=== PATIENT | male | born 1985 | race Caucasian/White ===

== ENCOUNTER 2017-10-08 15:51 | Emergency (ER) | payer BC ==
[2017-10-08 16:07] VITALS: BP 135/82
--- NOTE | 2017-10-08 16:55 | UC ---
Back Pain HPI - HPI Summary HPI Summary: 32 y/o male presents to the urgent care c/o lower back pain that radiates to left hip for the past 4 weeks. 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 He then developed pain on and off which is sometimes relief by Ibuprofen or Tylenol PO. However for the past week , he feels pain has worsen. Pain now is 4/10, spasmodic radiating to left hip or groin. Pt denies urinary symptoms, Hx of kidney stones, saddle anesthesia, urinary or fecal incontinence, numbness or tingling over the lower legs, SOB, chest pain, abdominal pain, hernias, N/V/D or Hx of STD. Pt also states he had Hx of prostatitis about 7 years ago which resolved w/ Tx. L - History of Current Complaint Chief Complaint: UCGI Stated Complaint: BACK, ABDOMINAL, AND GROIN PAIN Time Seen by Provider: 10/08/17 16:32 Hx Obtained From: Patient Onset/Duration: Sudden Onset, Lasting Weeks - 4 weeks, Still Present, Worse Since - 1 week Timing: Intermittent Severity Initially: Moderate Severity Currently: Mild Pain Intensity: 4 - w/ movement Pain Scale Used: 0-10 Numeric Back Pain: Is Discrete @ - lower back, Radiates To - left hip and left leg and sometimes to the lower abdomen Character: Sharp, Spasmodic Aggravating Factor(s): Movement, Lifting, Bending Alleviating Factor(s): Rest, OTC Meds Associated Signs And Symptoms: Negative: Fever, Weakness, Flank Pain, Bladder Incontinence - Risk Factors AAA Risk Factors: Negative TAD Risk Factors: Negative Cauda Equina Risk Factors: Negative Epidural Abscess Risk Factors: Negative - Allergies/Home Medications Allergies/Adverse Reactions: Allergies Allergy/AdvReac Type Severity Reaction Status Date / Time No Known Allergies Allergy Verified 10/08/17 16:07 PMH/Surg Hx/FS Hx/Imm Hx Previously Healthy: Yes Other Cardiovascular History: Heart murmur Other GI/ History: Prostatitis - Surgical History Surgical History: Yes Surgery Procedure, Year, and Place: LT KNEE ARTHROSCOPY - Family History Known Family History: Positive: Cardiac Disease, Hypertension - Social History Occupation: Employed Full-time Lives: With Family Alcohol Use: None Substance Use Type: None Smoking Status (MU): Never Smoked Tobacco Review of Systems Constitutional: Negative Skin: Negative Eyes: Negative ENT: Negative Respiratory: Negative Cardiovascular: Negative Gastrointestinal: Negative Genitourinary: Negative Motor: Negative Neurovascular: Negative Musculoskeletal: Decreased ROM - lower back, Other: - lower back pain rapdiating to left hip and lower abdomen Neurological: Negative Psychological: Negative Is Patient Immunocompromised?: No All Other Systems Reviewed And Are Negative: Yes Physical Exam Triage Information Reviewed: Yes Vital Signs: Initial Vital Signs Temp 99.5 F 10/08/17 16:02 Pulse 77 10/08/17 16:02 Resp 17 10/08/17 16:02 BP 135/82 10/08/17 16:02 Pulse Ox 100 10/08/17 16:02 - Additional Comments Vital Signs Reviewed: Yes Appearance: Well-Appearing, Well-Nourished, male sitting in the examining table w/o any apparent distress. Eyes: Positive: Conjunctiva Clear - PERRLA, EOMI. ENT: Positive: Normal ENT inspection, Hearing grossly normal, Pharynx normal, TMs normal, Uvula midline Neck: Positive: Supple, Nontender, No Lymphadenopathy Respiratory: Positive: Chest non-tender, Lungs clear, Normal breath sounds, No respiratory distress Cardiovascular: Positive: RRR, No Murmur, Pulses Normal, Brisk Capillary Refill Abdomen . Abd: Flat with no distention. No surface trauma, scars, incisions. hyperactive bowel sounds present in all four quadrants. No tenderness, guarding , rigidity to palpation. No masses palpated, no pulsation in epigastric area. No organomegaly. Negative Orwell signs. No periumbilical tenderness. No rebound in the lower quadrants. NT over McBurneys point.. Good femoral pulses bilaterally. No hernia noted. No inguinal hernia palpated when Pt coughs. Negative: CVA Tenderness (R), CVA Tenderness (L). MARISA: I was assisted by Nurse Monaamick; rectal examination reveals no external anal lesions. Sphincter tone is normal. There are no internal or external hemorrhoids. Rectal mucosa appears normal, and there are no nodules or masses present.No tenderness elicited, no enlarged prostate. No hemorrhoids : I was assisted by Nurse Monaemick. both testicles are descended. No masses are appreciated. Positive cremasteric reflex. Musculoskeletal: Positive: Strength Intact, Other: - BACK: Patient walked into the urgent care room with symmetric ambulation, No signs of limping, antalgic, able to bear weight. No signs of trauma, No masses palpated. Point tenderness at the level of L5-S1, and left side paraspinal muscle tenderness and spasm at the same level. No CVAT, no flank ecchymosis . No sacroiliac notch tenderness, No saddle anesthesia.ROM: limited due to pain, Straight Leg Raise: negative. Patellar reflexes: brisk, symmetric Muscle strength lower extremities. Dorsiflexion/ plantar flexion of ankles. Heel/ toe walk. Lower extremities: Femoral, popliteal, posterior tibial, and dorsalis pedis pulses WNL. Neurological: Positive: Alert, Muscle Tone Normal Psychological Exam: Normal Skin Exam: Normal Back Pain Course/Dx - Course Course Of Treatment: 32 y/o male presents to the urgent care c/o lower back pain that radiates to left hip for the past 4 weeks. 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 He then developed pain on and off which is sometimes relief by Ibuprofen or Tylenol PO. However for the past week, he feels pain has worsen. Pain now is 4/10, spasmodic radiating to left hip or groin. Pt denies urinary symptoms, Hx of kidney stones, saddle anesthesia, urinary or fecal incontinence, numbness or tingling over the lower legs, SOB, chest pain, abdominal pain, hernias, N/V/D or Hx of STD. Pt also states he had Hx of prostatitis about 7 years ago which resolved w/ Tx. Hx obtained. Pt w/ point tenderness at the level of L5-S1, and left side paraspinal muscle tenderness and spasm at the same level,no abdominal , inginal or femoral hernia noted, MARISA:negative on examination. UA ordered: negative. Lumbosacral X-ray ordered, Impression: No acute osseous injury observed. Pt w/ most likely back spasm. Pt Rx Naproxen PO, flexeril PO and given a PT referral. Patient was instructed to the f/u wit orthopedic in 1 week if symptoms do not improve or worsen. Patient understands and agrees. Patient is able to ambulate freely w/o aid or limp. Plan of care was discussed with the patient and patient understands and agrees. All questions were answered at patient satisfaction. Pt left clinic hemodynamically stable. - Differential Dx/Diagnosis Differential Diagnosis/HQI/PQRI: Cauda Equina Syndrome, Compressive Cord Syndrome, Fracture, Herniated Disc, Strain, Sprain, Other - muscle spasm Provider Diagnoses: 1-Acute lower back pain. 2-Back muscle spasm. Discharge - Discharge Plan Condition: Stable Disposition: HOME Prescriptions: Cyclobenzaprine TAB* [Flexeril 10 MG TAB*] 10 mg PO TID PRN #21 tab PRN Reason: Spasms - Back Naproxen [Naproxen 500 mg] 500 mg PO Q8H PRN #30 tab PRN Reason: Pain Patient Education Materials: Acute Low Back Pain (ED), Muscle Spasm (ED) Referrals: Ashkan Horner MD [Primary Care Provider] - 1 Week Aarti Leonard MD [Medical Doctor] - 1 Week Additional Instructions: 1- Please take Naproxen PO as directed after meals for pain. 2- Take Flexeril PO as directed for muscle spasm. Please do not drive while taking the medication. 3- Wear a back support. Avoid strenuous exercise of heavy lifting. 4- Please follow up with Orthopedic Dr Leonard or your PCP in 1 week if not improvement of symptoms, for further management.
--- NOTE | 2017-10-08 17:29 | RAD ---
INDICATION: 4 weeks of low back pain after gym injury COMPARISON: None. TECHNIQUE: 5 views of the lumbar spine were obtained. FINDINGS: The vertebra are in normal alignment. No fracture is seen. Disc spaces appear maintained. IMPRESSION: No evidence of fracture or subluxation.
== END 2017-10-08 18:16 | disposition home or self-care (01) ==
LOC: UCEAST 15:51
DX: M54.5 Low back pain (principal); M62.830 Muscle spasm of back; R01.1 Cardiac murmur, unspecified; N41.9 Inflammatory disease of prostate, unspecified
CPT/HCPCS: 72110; 81003; 99212; G0463

== ENCOUNTER → 2018-02-14 11:24 | Emergency (ER) | payer BC ==
[~2018-02-14 11:24] MED LIST: Bacitracin OINTMENT* 0.5% 0.5 oz TUBE TOPICAL ONE
--- NOTE | 2018-02-14 12:15 | RAD ---
INDICATION: Head injury. COMPARISON: There are no prior studies available for comparison. TECHNIQUE: Contiguous axial sections of the brain were obtained from the skull base to the vertex without contrast. FINDINGS: The ventricles, cisterns and sulci are within normal limits. No significant focal abnormality or mass effect is seen. There is no evidence for hemorrhage. No significant focal osseous abnormality is seen. The visualized portion of the paranasal sinuses and mastoid air cells appear clear. IMPRESSION: NO EVIDENCE FOR ACUTE INTRACRANIAL ABNORMALITY.
[2018-02-14 13:25] VITALS: BP 122/83
--- NOTE | 2018-02-14 15:35 | ED ---
Jannie Ferrer Edward, scribed for Phan Valenzuela MD on 02/14/18 at 1149 . Head Injury - HPI Summary HPI Summary: 33 y/o male presents to the ED c/o mild GROVE and head laceration at back of the head s/p hammer injury at work that occurred around 45 minutes ago. Pain initially severe now a 1/10. Pain not aggravated or alleviated by anything. Pt states he swung the hammer. No LOC, no nausea, no neck pain - History Of Current Complaint Chief Complaint: EDHeadInjury Stated Complaint: HEAD INJURY Hx Obtained From: Patient Mechanism Of Injury: Direct Blow Onset/Duration: Started Minutes Ago, Still Present Severity Currently: Mild Severity Initially: Severe Pain Intensity: 1 Pain Scale Used: 0-10 Numeric Location of Head Injury: Occipital Associated Signs And Symptoms: Headache - mild, Other: - laceration at back of head - Allergies/Home Medications Allergies/Adverse Reactions: Allergies Allergy/AdvReac Type Severity Reaction Status Date / Time No Known Allergies Allergy Verified 02/14/18 11:30 Home Medications: Home Medications Gabapentin CAP(*) [Neurontin 100 mg CAP(*)] 100 mg PO TID 02/14/18 [History Confirmed 02/14/18] PMH/Surg Hx/FS Hx/Imm Hx Previously Healthy: No Endocrine/Hematology History: Denies: Hx Anticoagulant Therapy, Hx Diabetes, Hx Thyroid Disease Cardiovascular History: Denies: Hx Hypertension, Hx Pacemaker/ICD Respiratory History: Denies: Hx Asthma, Hx Chronic Obstructive Pulmonary Disease (COPD) GI History: Denies: Hx Ulcer Musculoskeletal History: Denies: Hx Rheumatoid Arthritis, Hx Osteoporosis Sensory History: Denies: Hx Hearing Aid Psychiatric History: Denies: Hx Panic Disorder - Surgical History Surgery Procedure, Year, and Place: LT KNEE ARTHROSCOPY Infectious Disease History: No Infectious Disease History: Denies: Hx Hepatitis, Hx Human Immunodeficiency Virus (HIV), Traveled Outside the [place] in Last 30 Days - Family History Known Family History: Positive: Cardiac Disease, Hypertension - Social History Alcohol Use: None Substance Use Type: Reports: None Smoking Status (MU): Never Smoked Tobacco Review of Systems Constitutional: Negative Eyes: Negative ENT: Negative Cardiovascular: Negative Respiratory: Negative Gastrointestinal: Negative Genitourinary: Negative Musculoskeletal: Negative Positive: Other - laceration back of head Positive: Headache Psychological: Normal All Other Systems Reviewed And Are Negative: Yes Physical Exam Triage Information Reviewed: Yes Vital Signs On Initial Exam: Initial Vitals Temp Pulse Resp BP Pulse Ox 98.4 F 64 11 132/88 97 02/14/18 11:28 02/14/18 11:28 02/14/18 11:28 02/14/18 11:28 02/14/18 11:28 Vital Signs Reviewed: Yes Appearance: Positive: Well-Appearing, No Pain Distress Skin: Positive: Warm, Skin Color Reflects Adequate Perfusion, Dry Head/Face: Positive: Normal Head/Face Inspection Eyes: Positive: EOMI, TONI ENT: Positive: Normal ENT inspection Neck: Positive: Supple, Nontender Respiratory/Lung Sounds: Positive: Clear to Auscultation, Breath Sounds Present Cardiovascular: Positive: RRR Abdomen Description: Positive: Nontender, Soft Bowel Sounds: Positive: Present Musculoskeletal: Positive: Normal, Strength/ROM Intact Neurological: Positive: Sensory/Motor Intact, Alert, Oriented to Person Place, Time, Other - At occipital region pt has a 1.5 cm laceration with partial thickness, nonbleeding laceration with edges closely approximated, some swelling localized around laceration. Psychiatric: Positive: Affect/Mood Appropriate - Treece Coma Scale Best Eye Response: 4 - Spontaneous Best Motor Response: 6 - Obeys Commands Best Verbal Response: 5 - Oriented Coma Scale Total: 15 Procedures - Laceration/Wound Repair 1 Location: head Description: Linear Length, Depth and Shape: 1.5CM Laceration/Wound Explored: clean Closure: Skin Adhesive Debridement: NONE Diagnostics - Vital Signs Vital Signs Temp Pulse Resp BP Pulse Ox 02/14/18 11:28 98.4 F 64 11 132/88 97 - Laboratory Lab Statement: Any lab studies that have been ordered have been reviewed, and results considered in the medical decision making process. - CT BRAIN CT CT Interpretation: No Acute Changes - NO EVIDENCE FOR ACUTE INTRACRANIAL ABNORMALITY CT Interpretation Completed By: Radiologist Head Injury Course/Dx Course Of Treatment: SCALP LACERATION BLEED MINIMALLY IN ED. CLEANED AND CLOSED WITH ADHESIVE. PATIENT REPORTS TETANUS IS UTD. F/U PMD PRN; RETURN TO ED IF WORSE. - Diagnoses Provider Diagnoses: Head injury, Scalp laceration Discharge - Sign-Out/Discharge Documenting (check all that apply): Discharge/Admit/Transfer - Discharge Plan Condition: Stable Disposition: HOME Patient Education Materials: Laceration (ED), Head Injury (ED), Skin Adhesive Care (ED) Referrals: Ashkan Horner MD [Primary Care Provider] - Additional Instructions: FOLLOW UP WITH YOUR DOCTOR. RETURN TO THE EMERGENCY DEPARTMENT FOR ANY WORSENING OF YOUR CONDITION OR QUESTIONS OR CONCERNS. - Billing Disposition and Condition Condition: STABLE Disposition: Home The documentation as recorded by the Jannie olivia Edward accurately reflects the service I personally performed and the decisions made by me, Phan Valenzuela MD.
== END | disposition home or self-care (01) ==
LOC: ED 11:24
DX: S09.90XA Unspecified injury of head, initial encounter (principal); S01.01XA Laceration without foreign body of scalp, initial encounter; W22.8XXA Striking against or struck by other objects, initial encounter; Y99.0 Civilian activity done for income or pay; Z79.899 Other long term (current) drug therapy
CPT/HCPCS: 12001; 70450; 99282; A9270-GY

== ENCOUNTER 2018-09-11 12:53 | Emergency (ER) | payer BC, OTHER ==
[2018-09-11 13:50] VITALS: BP 137/82
--- NOTE | 2018-09-11 14:13 | UC ---
Upper Extremity HPI - HPI Summary HPI Summary: 33-year-old male presents with complaints of left shoulder pain after slipping on some ice while entering his truck 5 days ago. States he thinks he may have tried to grab the door when he slipped causing a pulling injury to the left shoulder. States pain is located over the left trapezius and occasionally radiates up into the left lower neck. States he had 2 brief episodes of a numb sensation to the palm of his left hand when he shrugged his shoulder however denies any sensory deficit present. He has taken ibuprofen 400 mg with relief in the pain. Denies fever, chills, chest pain, palpitations, shortness of breath, abdominal pain, nausea, or vomiting. - History of Current Complaint Chief Complaint: UCUpperExtremity Stated Complaint: SHOULDER AND NECK INJURY Time Seen by Provider: 09/11/18 13:37 Hx Obtained From: Patient Pain Intensity: 3 - Allergies/Home Medications Allergies/Adverse Reactions: Allergies Allergy/AdvReac Type Severity Reaction Status Date / Time No Known Allergies Allergy Verified 09/11/18 13:44 PMH/Surg Hx/FS Hx/Imm Hx Previously Healthy: Yes Neurological History: Other - Peripheral neuropathy right leg Other History Of: Negative For: Anticoagulant Therapy - Surgical History Surgical History: Yes Surgery Procedure, Year, and Place: LT KNEE ARTHROSCOPY - Family History Known Family History: Positive: Cardiac Disease, Hypertension - Social History Occupation: Employed Full-time Lives: With Family Alcohol Use: None Substance Use Type: None Smoking Status (MU): Never Smoked Tobacco Review of Systems All Other Systems Reviewed And Are Negative: Yes Constitutional: Negative: Fever, Chills Skin: Negative: Rash, Bruising Respiratory: Negative: Shortness Of Breath, Cough Cardiovascular: Negative: Palpitations, Chest Pain Gastrointestinal: Negative: Abdominal Pain, Vomiting, Diarrhea, Nausea Genitourinary: Positive: Negative Motor: Negative: Weakness Neurovascular: Negative: Decreased Sensation Musculoskeletal: Positive: Other: - See HPI Neurological: Positive: Negative Is Patient Immunocompromised?: No Physical Exam - Summary Physical Exam Summary: GENERAL APPEARANCE: Well developed, well nourished, alert and cooperative, and appears to be in no acute distress. HEAD: Atraumatic. normocephalic. NECK: Neck supple, non-tender. Full non-tender ROM. CARDIAC: Normal S1 and S2. No S3, S4 or murmurs. Rhythm is regular. There is no peripheral edema, cyanosis or pallor. Extremities are warm and well perfused. Capillary refill is less than 2 seconds. Peripheral pulses intact. LUNGS: Clear to auscultation without rales, rhonchi, wheezing or diminished breath sounds. ABDOMEN: Positive bowel sounds. Soft, nondistended, nontender. No guarding or rebound. No masses or hepatosplenomegally. MUSKULOSKELETAL: Tenderness over the left trapezius without spasm. Should joint non-tender with full ROM. No gross deformity, ecchymosis, or erythema. Circulation and sensation intact distally. BACK: Examination of the spine reveals normal gait and posture, no spinal deformity or tenderness, decreased range of motion or muscular spasm. NEUROLOGICAL: Strength and sensation symmetric and intact. SKIN: Skin normal color, texture and turgor with no lesions or eruptions. Triage Information Reviewed: Yes Vital Signs: Initial Vital Signs Temp 99.5 F 09/11/18 13:44 Pulse 78 09/11/18 13:44 Resp 16 09/11/18 13:44 BP 137/82 09/11/18 13:44 Pulse Ox 100 09/11/18 13:44 Vital Signs Reviewed: Yes Diagnostics - Radiology No standard instances Radiology Interpretation Completed By: Radiologist Summary of Radiographic Findings: Patient Name: SAVITA BAEZ Medical Record# : [id number]. Ordering Physician: Hernan Up NP Acct.#: [id number]. : 1985 Age: 33 Sex: M Location: [facility]. Exam Date: 09/11/18 1400 ADM Status: REG ER. Order Information: SHOULDER LEFT 2+ VWS. Accession Number: [id number]. CPT: 40715. Indication: Left shoulder pain. 4 views of left shoulder demonstrates no fracture or dislocation. No other bone or joint. abnormality is identified. IMPRESSION: No fracture of the left shoulder is noted. Upper Extremity Course/Dx - Course Course Of Treatment: 33-year-old male presents with complaints of left shoulder pain after slipping on some ice while entering his truck 5 days ago. States he thinks he may have tried to grab the door when he slipped causing a pulling injury to the left shoulder. States pain is located over the left trapezius and occasionally radiates up into the left lower neck. States he had 2 brief episodes of a numb sensation to the palm of his left hand when he shrugged his shoulder however denies any sensory deficit present. He has taken ibuprofen 400 mg with relief in the pain. Denies fever, chills, chest pain, palpitations , shortness of breath, abdominal pain, nausea, or vomiting. Afebrile. Vital signs stable. Exam reveals dental male in no acute distress. He had some mild tenderness over the left trapezius muscle without spasm. Cervical spine was nontender with full range of motion. The left shoulder joint was nontender to palpation and patient had full painless range of motion in the shoulder. Circulation sensation intact distally. X-ray of the left shoulder was negative for fracture or dislocation. Recommending symptomatic treatment for a strain of the left trapezius muscle. He was given a prescription for naproxen 500 mg every 12 hours. He was demonstrated and encouraged to use gentle range of motion exercises of the shoulder to avoid freezing of the shoulder. He is to follow-up with his primary care provider in 7 days if symptoms do not improve. Anticipatory guidance and warning symptoms were reviewed with the patient. Verbalizes understanding and agrees with plan of care. - Differential Dx/Diagnosis Differential Diagnosis/HQI/PQRI: Bursitis, Contusion, Fracture (Closed), Strain , Sprain Provider Diagnosis: Strain of left trapezius muscle Discharge - Sign-Out/Discharge Documenting (check all that apply): Patient Departure All imaging exams completed and their final reports reviewed: Yes - Discharge Plan Condition: Stable Disposition: HOME Prescriptions: Naproxen [Naproxen 500 mg tab] 500 mg PO Q12HR #30 tablet Patient Education Materials: Muscle Strain (ED) Referrals: Ashkan Horner MD [Primary Care Provider] - 7 Days (If no improvement.) Additional Instructions: The x-ray of your left shoulder performed in the clinic today was normal. I suspect that your pain is from a strain of the trapezius muscle. Rest the arm as much as possible. Avoid heavy lifting or strenuous activity. Perform the gentle range of motion exercises as demonstrated to you. Use ice or heat or alternate ice then heat to the affected area for 15-20 minutes 4 times a day. Take naproxen 500 mg 1 tab every 12 hours with food for next 5 days then may take as needed. Follow up with your primary care provider in 7 days if no improvement in symptoms. Seek immediate medical attention in the emergency room if you have chest pain, feel as if your heart is racing of skipping beats, shortness of breath, severe abdominal pain, persistent vomiting, worsening pain that is not managed with pain medication, you develop numbness, tingling, or weakness of the arm, or any worsening of symptoms. - Billing Disposition and Condition Condition: STABLE Disposition: Home - Attestation Statements Provider Attestation: Per institutional requirements, I have reviewed the chart, however, I was not consulted specifically or made aware of this patient by the midlevel provider. I did not personally evaluate, interact with , or disposition this patient.
== END 2018-09-11 14:38 | disposition home or self-care (01) ==
LOC: UCEAST 12:53
DX: S46.812A Strain of other muscles, fascia and tendons at shoulder and upper arm level, left arm, initial encounter (principal); W00.0XXA Fall on same level due to ice and snow, initial encounter; Y92.9 Unspecified place or not applicable
CPT/HCPCS: 99212; G0463